=== PATIENT | female | born 1950 | race Caucasian/White ===

== ENCOUNTER → 2016-08-15 | Outpatient (CLI) | payer BC ==
[~2016-08-15] MED LIST: B-COTAB18 PO; CHOL1000 PO; COEN75CA PO; DIGECAP3 PO; MAGN250T3 PO; MISCCAP80 PO; OMEG10007 PO; OXYC-57 PO; THY/30 PO; [UNRECOGNIZED DRUG - OTHER] PO
--- NOTE | 2016-08-15 11:20 | DIAGNOSTIC IMAGING REPORT ---
CT SCAN OF THE PARANASAL SINUSES CLINICAL HISTORY: Chronic sinusitis. COMPARISON STUDY: No priors. TECHNIQUE: High-resolution CT scan of the paranasal sinuses is performed. Images are reviewed in the axial, sagittal, and coronal planes. IV contrast was not administered for this examination. CT DOSE: 584.73 mGy.cm FINDINGS: Maxillary antra: There is evidence of previous surgical fixation involving the anterior wall of the maxillary antra bilaterally. There is a full-thickness bony defect identified in the posterior wall of the right maxillary antrum seen on image #150. This measures 10 mm. A smaller full-thickness bony defect is seen in the posterior wall of the left maxillary antrum on image #146 and measures up to 5 mm. There is trace dependent mucosal thickening within the left maxillary antrum. The right maxillary antrum is clear. Anterior ethmoid sinuses: Clear. Posterior ethmoid sinuses: Clear. Sphenoid sinuses: Trace mucosal thickening is seen in the left sphenoid sinus. Clear on the right. Frontal sinuses: Clear. Ostiomeatal complexes: Patent bilaterally. Frontoethmoidal and sphenoethmoidal recesses: Patent bilaterally. Carotid arteries: The carotid arteries are covered and there is a septal attachment on the right. Ethmoid roofs: The ethmoid roofs appear intact and are roughly symmetric. Nasal turbinates: Normal in appearance. Nasal septum: There is mild rightward deviation of the bony nasal septum. Optic nerves: Covered. Orbits: The bony orbits are intact. Orbital contents are normal in appearance. Calvarium: The skeletal structures are osteopenic. The imaged calvarium appears intact. Postoperative changes identified within the right aspect of the mandible. Findings suggest previous left nasal bone fracture. Mastoid air cells: Well pneumatized. Brain parenchyma: Partially visualized brain parenchyma is within normal limits noting age-related involutional change. IMPRESSION: 1. No significant paranasal sinus disease. 2. Posttraumatic and postoperative change is seen involving the maxillary antra bilaterally as detailed above. Electronically signed by: Jonathan Saul M.D. 08/15/2016 11:18 AM Dictated Date/Time: 08/15/2016 11:13 AM
== END ==
LOC: C.CTS 10:26
PROVIDERS: ATTEND Otolaryngology
DX: J32.9 Chronic sinusitis, unspecified (principal)

== ENCOUNTER → 2016-09-19 | Day surgery (SDC) | payer BC ==
[2016-09-12 13:07] VITALS: Ht 165.1 cm; Wt 60.5 kg
--- NOTE | 2016-09-18 12:17 | History and Physical: Surg Cnt ---
History & Physical Date September 18, 2016. Chief Complaint chronic sinusitis History of Present Illness The patient is a 66 year old female with complaints of recurrent and chronic sinusitis, previous Le[place] surgery of maxilla, hardware in sinuses Additional History Hepatic Disease: No Endocrine Disorder: No Kidney Disease: No Hypertension: No Heart Disease: No Bleeding Tendencies: No Infectious Diseases: No Allergies Coded Allergies: Latex1 -Allergic Contact Dermititis (Verified Allergy, Unknown, SKIN IRRITATION, 09/12/16) NO KNOWN DRUG ALLERGIES (Verified Allergy, Unknown, ., 09/12/16) Home Medications Scheduled B-Complex Vitamins (Vitamin B Complex), 1 TAB PO QAM Cholecalciferol (Vitamin D3), 1 TAB PO QAM Coenzyme Q10 (Ubidecarenone) (Co Q-10), 1 CAP PO QAM Digestive Enzymes (Enzyme Digest), 1 CAP PO TIDM Fish Oil ([place]-3), 1 CAP PO ON HOLD Magnesium (Magnesium 250 mg), 1 TAB PO QAM Probiotic Product (Probiotic), 1 CAP PO QAM Thyroid ([place] Thyroid), 60 MG PO QAM [Vitamin A D K], 1 TAB PO QAM Physical Examination Skin: warm/dry, no rash Eyes: normal inspection, EOMI, sclerae normal ENT: normal ENT inspection, pharynx normal Head: normocephalic, atraumatic Neck: supple, no adenopathy, trachea midline Respiratory/Chest: lungs clear, normal breath sounds, no respiratory distress Cardiovascular: regular rate, rhythm, no edema, no murmur Abdomen / GI: normal bowel sounds, non tender Back: normal inspection Extremities: normal inspection, normal range of motion Neurologic/Psych: no motor/sensory deficits, alert, normal reflexes, oriented x 3 Diagnosis chronic sinusitis Plan of Treatment endoscopic sinus surgery
[~2016-09-19] VITALS: Ht 165.1 cm; Wt 60.5 kg
[~2016-09-19] MED LIST changes: +ATROPINE SULFATE 0.1 MG/ML 5ML SYR IV PRN; +CEFAZOLIN 1000MG/55 ML D5W IV SCH; +DEXAMETHASONE SOD INJ 4 MG/ML VIAL IV PRN; +DEXAMETHASONE SOD INJ 4 MG/ML VIAL ONE; +EpHEDrine SULFATE INJ 50 MG/ML AMP IV PRN; +EpINEphrine INJ 1MG/ML AMP 1 MG/ML AMP ONE; +FENTANYL CITRATE INJ 50 MCG/1 ML 2 ML VIAL IV PRN; +FENTANYL CITRATE INJ 50 MCG/1 ML 2 ML VIAL ONE; +KETOROLAC TROMETHAMINE 30 MG/ML VIAL IV. PRN; +LABETALOL HCL IV 5 MG/ML 20ML IV PRN; +LACTATED RINGER'S 1000ML 1,000 ML IV SCH; +LIDO 2%/EPINEPHRINE 1:100000 20 ML VIAL INFIL ONE; +LIDOCAINE 4% MPF SOAK 5 ML = 1 DOSE TOP ONE; +LIDOCAINE HCL 2% 2 ML VIAL (20MG/ML) ONE; +METOCLOPRAMIDE HCL INJ 5 MG/ML 2 ML VIAL IV PRN; +MIDAZOLAM HCL 1 MG/ML 2ML VIAL ONE; +MoRPHine SULFATE 10 MG/ML CARP/VIAL IV PRN; +ONDANSETRON INJ 2 MG/ML 2 ML VIAL IV PRN; +ONDANSETRON INJ 2 MG/ML 2 ML VIAL ONE; +OXYCODONE/ACETAMINOPHEN 5-325 TAB PO PRN; +PHENYLEPHRINE 100MCG/ML 5ML SYR IV PRN; +PROPOFOL IV EMULSION 10 MG/ML 20 ML VIAL IV ONE; +SODIUM CHLORIDE 0.9% 1000ML 1,000 ML IV SCH
--- NOTE | 2016-09-19 07:52 | History & Physical Bridge Note ---
H&P Re-Evaluation Bridge Note: I have examined the patient, reviewed the History & Physical and in the interval since the performance of the History & Physical I have noted the following changes of clinical significance: No changes noted
--- NOTE | 2016-09-19 09:11 | Discharge Instructions-SurgCtr ---
Discharge Instructions Date of Service September 19, 2016. Visit Reason for Visit: Chronic Sinusitis;Pre-Op Discharge Discharge Diagnosis / Problem: same Discharge Goals Goal(s): Improve disease control Activity Recommendations Activity Limitations: resume your previous activity Anesthesia . Post Anesthesia Instructions: If you have had General Anesthesia or IV Sedation: * Do not drive today. * Resume driving when surgeon permits. * Do not make important decisions or sign legal documents today. * Call surgeon for: 1. Temperature elevations greater than 101 degrees F. 2. Uncontrollable pain. 3. Excessive bleeding. 4. Persistent nausea and vomiting. 5. Medication intolerance (nausea, vomiting or rash). * For nausea and vomiting use only clear liquids such as: tea, soda, bouillon until nausea subsides, then gradually increase diet as tolerated. * If you have any concerns or questions, call your surgeon's office. If physician is unavailable and it is an emergency, call 911 or go to the nearest emergency room. . Instructions / Follow-Up Instructions / Follow-Up ACTIVITY RECOMMENDATIONS: * Being up and around is good, but no strenuous activity, heavy lifting or physical exertion for one week. * Keep your head elevated 30 degrees when lying down or sleeping. * Do not blow your nose for 48 hours, sniff back instead. * Avoid hot showers. OVER THE COUNTER MEDICATIONS: * You may use Tylenol * Avoid aspirin or aspirin containing products, e.g. as they may increase bleeding. SPECIAL CARE INSTRUCTIONS: * Expect to have bloody drainage from your nose and/or down your throat for one to three days. Change drip pad as needed. * Begin irrigating your nose with saline solution today, at least six to ten times per day and sniff back to help remove old clots or crust. * You may experience nasal and facial congestion, pain and pressure, this is normal. * Please call with any significant and/or progressive pain, redness, swelling around the eyes, visual changes, fever of 101.5 degrees F, active bleeding or any problems or concerns. * If active bleeding occurs, spray the nose three times at one minute intervals with Afrin spray and call or cell phone: . If unable to reach the doctor, go to the nearest Emergency Department. Special Diet: * Avoid extremely hot fluids. FOLLOW UP VISIT: Follow-up Visit with Dr. Dong If not already scheduled, please call to schedule. Diet Recommendations Home Diet: no limitations Pending Studies Studies pending at discharge: no Medical Emergencies . Who to Call and When: Medical Emergencies: If at any time you feel your situation is an emergency, please call 911 immediately. . Non-Emergent Contact Non-Emergency issues call your: Primary Care Provider . . "Provider Documentation" section prepared by Georgina Dong. . [place] Drug Monitoring Program Search Results: no issues identified
--- NOTE | 2016-09-19 10:42 | OPERATIVE REPORT ---
DATE OF OPERATION: 09/19/2016 PREOPERATIVE DIAGNOSIS: Chronic sinusitis. POSTOPERATIVE DIAGNOSIS: Same. PROCEDURE: Right and left frontal, right and left total ethmoid, and right and left maxillary sinus antrostomy. SURGEON: Dr. Dong. ANESTHESIA: General LMA. COMPLICATIONS: None. BLOOD LOSS: 10 mL HISTORY: This 66-year-old lady presented with recurrent chronic sinusitis, followed by me for over 10 years. Because of the recurrent acute episodes of sinusitis and the persistent headaches, the patient requested definitive treatment. She had previously had maxillary [place] surgery with hardware in the maxilla. PROCEDURE IN DETAIL: The patient brought to operating room and placed in supine position. General anesthesia was induced using LMA, prepped, draped in usual sterile manner. Nose decongested using topical cottonoids with a solution of 4 mL of 4% Xylocaine mixed with 1 mL of epinephrine. Injection of 2% Xylocaine in 1:100,000 strength epinephrine was also used. The Metago device calibrated and used for the entire procedure. The right maxillary sinus cannulated with guidewire and dilated using 6 mm balloon as was the left maxillary sinus. The left frontal sinus was cannulated with guidewire and dilated using the 6 mm balloon with [employer] computer guidance. The guidewire was left in place as a marker. Frontal sinusotomy was performed by removing the anterior wall, then the posterior wall of the agger nasi cell, opening up the nasofrontal duct, leaving the mucosa there intact. At this point, total ethmoidectomy was performed opening up the bulla ethmoidalis, going through the ground lamella into the posterior ethmoid air cells, delineating the skull base superiorly and lamina papyracea laterally, exonerating all the posterior and all the anterior ethmoid air cells, removing air cells up to the previously dilated nasofrontal duct and to the posterior wall of the maxillary sinus ostia, removing polypoid tissue at the posterior wall which is the anterior wall of the bulla ethmoidalis. The right frontal sinusotomy, total ethmoidectomy, and maxillary sinus antrostomy performed in similar manner. Propel stents were placed, 2 mini stents in the nasofrontal ducts and 2 regular stents in the middle meatus area. The patient tolerated the procedure well and was taken to recovery area in satisfactory condition. I attest to the content of the Intraoperative Record and any orders documented therein. Any exceptio ns are noted below.
--- NOTE | 2016-09-19 11:03 | Anesthesia Progress Nt - [facility] ---
Anesthesia Post Op Note Date & Time September 19, 2016 at 11:03 Vital Signs Pain Intensity: 4 Vital Signs Past 12 Hours Date Time Temp Pulse Resp B/P Pulse Ox O2 Delivery O2 Flow Rate FiO2 09/19/16 10:56 138/77 09/19/16 10:54 36.4 63 15 138/77 98 Room Air 09/19/16 10:54 65 14 100 09/19/16 10:54 65 14 09/19/16 10:51 152/74 09/19/16 10:49 69 18 09/19/16 10:49 71 18 100 09/19/16 10:46 138/89 09/19/16 10:44 73 12 09/19/16 10:44 72 12 100 09/19/16 10:41 138/78 09/19/16 10:39 68 11 100 09/19/16 10:39 70 11 09/19/16 10:36 147/81 09/19/16 10:34 68 19 87 09/19/16 10:34 67 19 09/19/16 10:31 144/81 09/19/16 10:29 71 13 100 09/19/16 10:29 72 13 09/19/16 10:25 143/78 09/19/16 10:24 82 21 09/19/16 10:24 81 21 100 09/19/16 10:20 140/85 09/19/16 10:20 144/75 09/19/16 10:19 36.2 88 12 149/85 100 Mask 6 09/19/16 07:30 36.5 77 16 121/75 97 Room Air Notes Mental Status: alert / awake / arousable, participated in evaluation Pt Amnestic to Procedure: Yes Nausea / Vomiting: adequately controlled Pain: adequately controlled Airway Patency, RR, SpO2: stable & adequate BP & HR: stable & adequate Hydration State: stable & adequate Anesthetic Complications: no major complications apparent
[2016-09-19 11:20] VITALS: TEMP 36.4
[2016-09-19 11:42] VITALS: BP 144/73; PULSE 61; O2SAT 100
== END | disposition home or self-care (01) ==
LOC: X.SURG 07:18
PROVIDERS: ATTEND Otolaryngology
DX: J32.9 Chronic sinusitis, unspecified (principal)

== ENCOUNTER → 2016-11-20 | Outpatient (CLI) | payer BC ==
[~2016-11-20] VITALS: Ht 165.1 cm; Wt 74.0 kg
[~2016-11-20] MED LIST changes: -ATROPINE SULFATE 0.1 MG/ML 5ML SYR IV PRN; -CEFAZOLIN 1000MG/55 ML D5W IV SCH; -DEXAMETHASONE SOD INJ 4 MG/ML VIAL IV PRN; -DEXAMETHASONE SOD INJ 4 MG/ML VIAL ONE; -EpHEDrine SULFATE INJ 50 MG/ML AMP IV PRN; -EpINEphrine INJ 1MG/ML AMP 1 MG/ML AMP ONE; -FENTANYL CITRATE INJ 50 MCG/1 ML 2 ML VIAL IV PRN; -FENTANYL CITRATE INJ 50 MCG/1 ML 2 ML VIAL ONE; -KETOROLAC TROMETHAMINE 30 MG/ML VIAL IV. PRN; -LABETALOL HCL IV 5 MG/ML 20ML IV PRN; -LACTATED RINGER'S 1000ML 1,000 ML IV SCH; -LIDO 2%/EPINEPHRINE 1:100000 20 ML VIAL INFIL ONE; -LIDOCAINE 4% MPF SOAK 5 ML = 1 DOSE TOP ONE; -LIDOCAINE HCL 2% 2 ML VIAL (20MG/ML) ONE; -METOCLOPRAMIDE HCL INJ 5 MG/ML 2 ML VIAL IV PRN; -MIDAZOLAM HCL 1 MG/ML 2ML VIAL ONE; -MoRPHine SULFATE 10 MG/ML CARP/VIAL IV PRN; -ONDANSETRON INJ 2 MG/ML 2 ML VIAL IV PRN; -ONDANSETRON INJ 2 MG/ML 2 ML VIAL ONE; -OXYCODONE/ACETAMINOPHEN 5-325 TAB PO PRN; -PHENYLEPHRINE 100MCG/ML 5ML SYR IV PRN; -PROPOFOL IV EMULSION 10 MG/ML 20 ML VIAL IV ONE; -SODIUM CHLORIDE 0.9% 1000ML 1,000 ML IV SCH
[2016-11-20 08:46] VITALS: BP 119/71; PULSE 74; BMI 27.1
[2016-11-20 08:51] VITALS: BP 119/71; PULSE 74; Ht 165.1 cm; Wt 74.0 kg
== END | disposition home or self-care (01) ==
LOC: C.NEUR 08:23
PROVIDERS: ATTEND Internal Medicine Pulmonary Disease
DX: G47.33 Obstructive sleep apnea (adult) (pediatric) (principal)